=== PATIENT | female | born 1975 ===

== ENCOUNTER 2016-10-18 09:34 | Emergency (ER) | payer BC ==
[2016-10-18 09:35] VITALS: BMI 33.3
--- NOTE | 2016-10-18 10:02 | ED PDOC ---
HPI: Abdomen Time Seen by Provider: 10/18/16 09:53 Chief Complaint (Nursing): Abdominal Pain Chief Complaint (Provider): Abdominal pain History Per: Patient History/Exam Limitations: no limitations Onset/Duration Of Symptoms: Days (2weeks) Outside of [place] travel?: No Current Symptoms Are (Timing): Intermittent Episodes Severity: Moderate Location Of Pain/Discomfort: LLQ Quality Of Discomfort: "Pain" Associated Symptoms: denies: Fever, Nausea, Vomiting, Diarrhea, Constipation, Urinary Symptoms Additional History Per: Patient Additional Complaint(s): The pt is a 41yo female with PMHx of HTN, presents to the ED for evaluation fo left lower quadrant abdominal pain, intermittent for the past 2 week. Pt reports taking tylenol for the pain with no relief. She denies any nausea, vomiting, diarrhea, constipation, fever or symptoms. Currently offers no additional medical complaints. Past Medical History Reviewed: Historical Data, Nursing Documentation, Vital Signs Vital Signs: Last Vital Signs Temp 98.5 F 10/18/16 09:55 Pulse 72 10/18/16 12:49 Resp 16 10/18/16 12:49 BP 122/70 10/18/16 12:49 Pulse Ox 100 10/18/16 12:49 - Medical History PMH: Anemia, HTN, Hypothyroidism Denies: HIV - Surgical History Surgical History: (1x) - Family History Family History: States: Unknown Family Hx, Hypertension - Home Medications Home Medications: Ambulatory Orders Medication Instructions Recorded Losartan [Cozaar] 50 mg PO DAILY 02/20/15 Cyclobenzaprine [Flexeril] 5 mg PO Q8 PRN #15 tab 03/05/16 Ibuprofen [Motrin Tab] 600 mg PO Q8 PRN #60 tab 03/05/16 Cyclobenzaprine [Cyclobenzaprine 10 mg PO TID #20 tab 07/28/16 HCl] Ibuprofen [Motrin] 600 mg PO Q6 #20 tab 07/28/16 Nitrofurantoin Macrocrystals 100 mg PO BID #13 cap 10/18/16 [Macrobid] Phenazopyridine [Pyridium] 200 mg PO TID PRN #6 tab 10/18/16 - Allergies Allergies/Adverse Reactions: Allergies Allergy/AdvReac Type Severity Reaction Status Date / Time No Known Allergies Allergy Verified 10/18/16 09:55 Review of Systems ROS Statement: Except As Marked, All Systems Reviewed And Found Negative Constitutional: Negative for: Fever Gastrointestinal: Positive for: Abdominal Pain. Negative for: Nausea, Vomiting , Diarrhea, Constipation Genitourinary Female: Positive for: Other (No SYMPTOMS) Physical Exam - Reviewed Nursing Documentation Reviewed: Yes Vital Signs Reviewed: Yes - Physical Exam Appears: Positive for: Well, Non-toxic, No Acute Distress Head Exam: Positive for: ATRAUMATIC, NORMAL INSPECTION, NORMOCEPHALIC Skin: Positive for: Normal Color Eye Exam: Positive for: Normal appearance Neck: Positive for: Normal Cardiovascular/Chest: Positive for: Regular Rate, Rhythm Respiratory: Positive for: Normal Breath Sounds. Negative for: Respiratory Distress Gastrointestinal/Abdominal: Positive for: Soft, Tenderness (Medial LLQ tenderness). Negative for: Guarding, Rebound Neurologic/Psych: Positive for: Alert, Oriented - Laboratory Results Result Diagrams: 10/18/16 11:07 10/18/16 11:07 - ECG O2 Sat by Pulse Oximetry: 99 (RA) Pulse Ox Interpretation: Normal - CT Scan/US Pelvic ultrasound Other Rad Studies (CT/US): Radiology Report Reviewed (Few small nabothian cysts. Study is otherwise unremarkable.) Medical Decision Making Medical Decision Making: Time: 1004 Impression: Abdominal pain w/o nausea, vomiting or diarrhea Plan: * CMP * CBC * Morphine 2 mg IV * US Pelvis/Transvaginal * Reassess Scribe Attestation: Documented by Jacquelin Ribeiro acting as a scribe for Mary Ann Vazquez MD. Provider Attestation: All medical record entries made by the Scribe were at my direction and personally dictated by me. I have reviewed the chart and agree that the record accurately reflects my personal performance of the history, physical exam, medical decision making, and the department course for this patient. I have also personally directed, reviewed, and agree with the discharge instructions and disposition. Disposition - Clinical Impression Clinical Impression: UTI (urinary tract infection) - Disposition Referrals: [facility] [Outside] Former[facility] [Outside] Disposition: Routine/Home Disposition Time: 12:41 Condition: STABLE Prescriptions: Nitrofurantoin Macrocrystals [Macrobid] 100 mg PO BID #13 cap Phenazopyridine [Pyridium] 200 mg PO TID PRN #6 tab PRN Reason: Bladder Spasm Instructions: Urinary Tract Infection in Women (ED) Print Language: YORUBA
[2016-10-18 10:13] VITALS: TEMP 98.5
[2016-10-18 11:10] LABS: BASO % 0.3 % (0.0-2.0); EOS # 0.1 K/uL (0.0-0.7); HEMATOCRIT 35.7 % (34.0-47.0); LYMPH # 2.2 K/uL (1.0-4.3); LYMPH % 35.2 % (20.0-40.0); MEAN CELL VOLUME 82.9 fl (81.0-99.0); MEAN CORPUSCULAR HEMOGLOBIN 27.5 pg (27.0-31.0); MEAN CORPUSCULAR HGB CONC 33.1 g/dL (33.0-37.0); MEAN PLATELET VOLUME 9.4 fl (7.2-11.7); MONO # 0.3 K/uL (0.0-0.8); MONO % 4.8 % (0.0-10.0); NEUT # 3.6 K/uL (1.8-7.0); NEUT % 58.7 % (50.0-75.0); NRBC % 0.1 % (0.0-0.0); RED CELL DISTRIBUTION WIDTH 13.6 % (11.5-14.5); WHITE BLOOD COUNT 6.2 K/uL (4.8-10.8)
[2016-10-18 11:16] LABS: RBC URINE 4 /hpf (0-3); URINE BACTERIA FEW (<OCC); URINE BILIRUBIN NEGATIVE (NEGATIVE); URINE BLOOD NEGATIVE (NEGATIVE); URINE COLOR YELLOW (YELLOW); URINE GLUCOSE (UA) NEG (Normal); URINE KETONE NEGATIVE (NEGATIVE); URINE LEUKOCYTE ESTERASE MOD Leu/uL (Negative); URINE PROTEIN NEGATIVE (NEGATIVE); URINE UROBILINOGEN 0.2-1.0 mg/dL (0.2-1.0); WBC URINE 12 /hpf (0-5)
[2016-10-18 11:29] LABS: ALB/GLOB RATIO 1.4 (1.0-2.1); ALKALINE PHOSPHATASE 60 U/L (38-126); ALT/SGPT 94 U/L (9-52); AST/SGOT 52 U/L (14-36); BILIRUBIN,TOTAL 0.2 mg/dl (0.2-1.3); BLOOD UREA NITROGEN 12 mg/dl (7-17); CALCIUM 9.4 mg/dL (8.4-10.2); CARBON DIOXIDE 23 mmol/L (22-30); CHLORIDE 105 mmol/L (98-107); GFR AFRICAN-AMERICAN > 60; GLUCOSE,RANDOM 159 mg/dL (65-105); POTASSIUM 3.8 MMOL/L (3.6-5.0); SODIUM 141 mmol/l (132-148); TOTAL PROTEIN 7.9 G/DL (6.3-8.2)
[2016-10-18 12:12] LABS: PARTIAL THROMBOPLASTIN TIME 28.1 SECONDS (23.3-32.5)
[2016-10-18 12:59] VITALS: BP 122/70; PULSE 72; RESP 16
--- NOTE | 2016-10-18 13:33 | US ---
PROCEDURE: Pelvic ultrasound dated 10/18/2016. HISTORY: LLQ pain COMPARISON: No prior study available for comparison TECHNIQUE: Transabdominal/transvaginal sonographic evaluation of the pelvis performed. FINDINGS: The uterus is anteverted measuring approximately 9.7 x 5.0 x 5.0 cm. No obvious myometrial masses. Endometrial stripe measures 1 cm. There are small nabothian cyst present. No evidence of free fluid seen in the cul de sac. Right ovary measures 2.8 x 1.9 x 2.0 cm. Left ovary measures 3.2 x 2.9 x 2.4 cm. Both ovaries exhibit arterial flow. IMPRESSION: Few small nabothian cysts. Study is otherwise unremarkable.
[2016-10-22 14:12] VITALS: O2SAT 99
== END 2016-10-18 13:00 | disposition home or self-care (01) ==
LOC: H.ER 09:34
DX: N39.0 Urinary tract infection, site not specified (principal); R10.32 Left lower quadrant pain; E03.9 Hypothyroidism, unspecified; I10 Essential (primary) hypertension; D64.9 Anemia, unspecified; N88.8 Other specified noninflammatory disorders of cervix uteri
CPT/HCPCS: 76830; 76856; 80053; 81003; 81025; 85025; 85610; 85730; 96374; 99283; J2270

== ENCOUNTER 2016-10-28 20:03 | Emergency (ER) | payer BC ==
[2016-10-28 20:03] VITALS: BMI 33.3
[2016-10-28 21:28] LABS: BASO # 0.1 K/uL (0.0-0.2); BASO % 0.5 % (0.0-2.0); EOS # 0.1 K/uL (0.0-0.7); EOS % 0.8 % (0.0-4.0); HEMATOCRIT 39.1 % (34.0-47.0); MEAN CORPUSCULAR HEMOGLOBIN 27.5 pg (27.0-31.0); MEAN CORPUSCULAR HGB CONC 33.1 g/dL (33.0-37.0); MONO # 0.5 K/uL (0.0-0.8); MONO % 4.8 % (0.0-10.0); NEUT % 65.9 % (50.0-75.0); RED CELL DISTRIBUTION WIDTH 13.5 % (11.5-14.5); WHITE BLOOD COUNT 10.6 K/uL (4.8-10.8)
[2016-10-28 21:40] LABS: ALB/GLOB RATIO 1.3 (1.0-2.1); ALKALINE PHOSPHATASE 70 U/L (38-126); ALT/SGPT 107 U/L (9-52); AST/SGOT 71 U/L (14-36); BILIRUBIN,TOTAL 0.2 mg/dl (0.2-1.3); BLOOD UREA NITROGEN 11 mg/dl (7-17); CALCIUM 9.7 mg/dL (8.4-10.2); CARBON DIOXIDE 25 mmol/L (22-30); CHLORIDE 102 mmol/L (98-107); GFR AFRICAN-AMERICAN > 60; GLUCOSE,RANDOM 142 mg/dL (65-105); POTASSIUM 3.1 MMOL/L (3.6-5.0); SODIUM 141 mmol/l (132-148); TOTAL PROTEIN 8.7 G/DL (6.3-8.2)
[2016-10-28 21:44] LABS: RBC URINE 15 /hpf (0-3); URINE BACTERIA RARE (<OCC); URINE BILIRUBIN NEGATIVE (NEGATIVE); URINE BLOOD LARGE (NEGATIVE); URINE COLOR YELLOW (YELLOW); URINE GLUCOSE (UA) NEG (Normal); URINE KETONE NEGATIVE (NEGATIVE); URINE LEUKOCYTE ESTERASE NEG Leu/uL (Negative); URINE PROTEIN NEGATIVE (NEGATIVE); URINE UROBILINOGEN 0.2-1.0 mg/dL (0.2-1.0); WBC URINE 4 /hpf (0-5)
[2016-10-28] MEDS ORDERED: Potassium Chloride 20 mEq ER Tab PO STA (21:48)
[2016-10-28] MEDS ORDERED: Potassium Chloride 20 mEq ER Tab PO ONE (21:51)
[2016-10-28 22:23] LABS: PARTIAL THROMBOPLASTIN TIME 35.4 SECONDS (23.3-32.5)
--- NOTE | 2016-10-28 22:48 | ED PDOC ---
HPI: Chest Pain Time Seen by Provider: 10/28/16 20:15 Chief Complaint (Nursing): Chest Pain Chief Complaint (Provider): Chest pain History Per: Patient, Family History/Exam Limitations: no limitations Onset/Duration Of Symptoms: Days (2) Current Symptoms Are (Timing): Intermittent Episodes Quality: Sharp Associated Symptoms: denies: Nausea, Dyspnea, Diaphoresis, Syncope Exacerbating Factors: Turning Additional Complaint(s): Pt reports L sided lateral chest pain X 2 days, intermittent, no radiation, no SOB, no nausea. Denies fever, palpitations, leg pain, leg swelling. - Risk Factors PE Risk Factors: Neg: Previous DVT, Previous PE TAD Risk Factors: Pos: Hypertension Past Medical History Vital Signs: Last Vital Signs Temp 98 F 10/28/16 20:14 Pulse 86 10/28/16 20:14 Resp 18 10/28/16 20:14 BP 121/77 10/28/16 20:14 Pulse Ox 99 10/28/16 20:14 - Medical History PMH: Anemia, HTN, Hypothyroidism Denies: HIV - Surgical History Surgical History: (1x) - Family History Family History: States: Unknown Family Hx, Hypertension - Living Arrangements Living Arrangements: With Family - Social History Current smoker - smoking cessation education provided: No Alcohol: None - Home Medications Home Medications: Ambulatory Orders Medication Instructions Recorded Losartan [Cozaar] 50 mg PO DAILY 02/20/15 Cyclobenzaprine [Flexeril] 5 mg PO Q8 PRN #15 tab 03/05/16 Ibuprofen [Motrin Tab] 600 mg PO Q8 PRN #60 tab 03/05/16 Cyclobenzaprine [Cyclobenzaprine 10 mg PO TID #20 tab 07/28/16 HCl] Ibuprofen [Motrin] 600 mg PO Q6 #20 tab 07/28/16 Nitrofurantoin Macrocrystals 100 mg PO BID #13 cap 10/18/16 [Macrobid] Phenazopyridine [Pyridium] 200 mg PO TID PRN #6 tab 10/18/16 Ibuprofen [Motrin] 600 mg PO Q6H PRN #20 tab 10/28/16 - Allergies Allergies/Adverse Reactions: Allergies Allergy/AdvReac Type Severity Reaction Status Date / Time No Known Allergies Allergy Verified 10/18/16 09:55 ANDREW Risk Score for UA/NSTEMI - ANDREW Risk Score Age > 64: NO 3 or more CAD Risk Factors: NO Known CAD (Stenosis greater than 50%): NO Aspirin use in past 7 days: NO Severe Angina: NO EKG ST changes greater than 0.5mm: NO Positive Cardiac Marker: NO ANDREW Score: 0 Risk %: 5% Wells Criteria for PE - Wells Criteria for Pulmonary Embolism Clinical Signs and Symptoms of DVT: No P.E is #1 Diagnosis, or Equally Likely: No Heart Rate >100: No Immobilization at least 3 days;Surgery previous 4 weeks: No Previous, objectively diagnosed PE or DVT: No Hemoptysis: No Malignancy w/treatment within 6 months, or palliative: No Total Score: 0 Review of Systems Constitutional: Negative for: Fever, Chills Cardiovascular: Positive for: Chest Pain. Negative for: Palpitations Respiratory: Negative for: Cough, Shortness of Breath Gastrointestinal: Negative for: Nausea, Vomiting, Abdominal Pain, Diarrhea Genitourinary Female: Negative for: Dysuria, Hematuria Musculoskeletal: Negative for: Neck Pain, Back Pain Skin: Negative for: Rash, Lesions Neurological: Positive for: Headache. Negative for: Weakness, Numbness, Seizures, Altered Mental Status, Dizziness Physical Exam - Reviewed Nursing Documentation Reviewed: Yes Vital Signs Reviewed: Yes - Physical Exam Appears: Positive for: Well, No Acute Distress Head Exam: Positive for: ATRAUMATIC, NORMAL INSPECTION Skin: Positive for: Normal Color, Warm, Dry Eye Exam: Positive for: Normal appearance, EOMI, PERRL Cardiovascular/Chest: Positive for: Regular Rate, Rhythm. Negative for: Chest Non Tender (TTP L lateral chest wall) Respiratory: Positive for: Normal Breath Sounds. Negative for: Rales, Rhonchi, Wheezing Gastrointestinal/Abdominal: Positive for: Normal Exam Back: Positive for: Normal Inspection Extremity: Positive for: Normal ROM Neurologic/Psych: Positive for: Alert, specifications checker II-XII, Oriented. Negative for: Motor/Sensory Deficits - Laboratory Results Result Diagrams: 10/28/16 19:20 10/28/16 19:20 - ECG Interpretation Of ECG: NSR @ 83, nonspecific ST abnormality. O2 Sat by Pulse Oximetry: 99 Pulse Ox Interpretation: Normal - Radiology X-Ray: Interpreted by Tx X-Ray Interpretation: No Acute Disease Medical Decision Making Medical Decision Makin yo with chest wall pain. - labs - EKG - CXR Disposition - Clinical Impression Clinical Impression: Atypical chest pain - Disposition Referrals: [facility] [Outside] Disposition: Routine/Home Disposition Time: 22:46 Condition: STABLE Prescriptions: Ibuprofen [Motrin] 600 mg PO Q6H PRN #20 tab PRN Reason: Pain, Moderate (4-7) Instructions: Chest Pain (ED) Print Language: SETSWA[place]
[2016-10-28 23:43] VITALS: BP 126/73; PULSE 83; RESP 16; TEMP 97.8; O2SAT 98
--- NOTE | 2016-10-29 08:54 | CARD ---
APPROVED REPORT EKG Measurement Heart [id number] <Conclusion> Normal sinus rhythm Nonspecific ST abnormality Abnormal ECG
--- NOTE | 2016-10-29 10:19 | RAD ---
HISTORY: CP COMPARISON: Chest x-ray performed 03/05/16 TECHNIQUE: Chest PA and lateral FINDINGS: Examination limited by habitus. LUNGS: No focal consolidation. Please note that chest x-ray has limited sensitivity for the detection of pulmonary masses. PLEURA: No significant pleural effusion identified. No definite pneumothorax . CARDIOVASCULAR: Heart size appears within normal limits. OSSEOUS STRUCTURES: Degenerative changes. VISUALIZED UPPER ABDOMEN: Unremarkable. OTHER FINDINGS: None. IMPRESSION: No focal consolidation, significant pleural effusion, or definite pneumothorax identified.
== END 2016-10-28 23:44 | disposition home or self-care (01) ==
LOC: H.ER 20:03
DX: R07.89 Other chest pain (principal); I10 Essential (primary) hypertension

== ENCOUNTER 2017-10-22 21:45 | Emergency (ER) | payer BC ==
[2017-10-22 21:46] VITALS: BMI 33.3
[2017-10-22 22:50] VITALS: BP 127/85; PULSE 78; RESP 16; TEMP 98.3; O2SAT 97
--- NOTE | 2017-10-23 00:16 | ED PDOC ---
HPI: Allergic Reaction Time Seen by Provider: 10/22/17 23:14 Chief Complaint (Nursing): Allergic Reaction Chief Complaint (Provider): Rash Past Medical History Vital Signs: Last Vital Signs Temp 98.3 F 10/22/17 22:46 Pulse 78 10/22/17 22:46 Resp 16 10/22/17 22:46 BP 127/85 10/22/17 22:46 Pulse Ox 97 10/22/17 22:46 - Medical History PMH: Anemia, HTN, Hypothyroidism Denies: HIV - Surgical History Surgical History: (1x) - Family History Family History: States: Unknown Family Hx, Hypertension - Home Medications Home Medications: Ambulatory Orders Medication Instructions Recorded Losartan [Cozaar] 50 mg PO DAILY 02/20/15 Cyclobenzaprine [Flexeril] 5 mg PO Q8 PRN #15 tab 03/05/16 Ibuprofen [Motrin Tab] 600 mg PO Q8 PRN #60 tab 03/05/16 Cyclobenzaprine [Cyclobenzaprine 10 mg PO TID #20 tab 07/28/16 HCl] Ibuprofen [Motrin] 600 mg PO Q6 #20 tab 07/28/16 Nitrofurantoin Macrocrystals 100 mg PO BID #13 cap 10/18/16 [Macrobid] Phenazopyridine [Pyridium] 200 mg PO TID PRN #6 tab 10/18/16 Ibuprofen [Motrin] 600 mg PO Q6H PRN #20 tab 10/28/16 DiphenhydrAMINE [Benadryl] 50 mg PO Q6H PRN #20 cap 10/23/17 Famotidine [Pepcid] 20 mg PO DAILY #5 tab 10/23/17 predniSONE [predniSONE Tab] 20 mg PO DAILY #12 tab 10/23/17 - Allergies Allergies/Adverse Reactions: Allergies Allergy/AdvReac Type Severity Reaction Status Date / Time No Known Allergies Allergy Verified 10/18/16 09:55 - ECG O2 Sat by Pulse Oximetry: 97 Disposition - Clinical Impression Clinical Impression: Urticaria - Patient ED Disposition Is Patient to be Admitted: No Counseled Patient/Family Regarding: Diagnosis, Need For Followup, Rx Given - Disposition Disposition: Routine/Home Disposition Time: 00:15 Condition: GOOD Prescriptions: DiphenhydrAMINE [Benadryl] 50 mg PO Q6H PRN #20 cap PRN Reason: Itching / Pruritus Famotidine [Pepcid] 20 mg PO DAILY #5 tab predniSONE [predniSONE Tab] 20 mg PO DAILY #12 tab Instructions: Joseph (DC) Print Language: MALAY
== END 2017-10-23 00:20 | disposition home or self-care (01) ==
LOC: H.ER 21:45
DX: L50.0 Allergic urticaria (principal); E03.9 Hypothyroidism, unspecified; I10 Essential (primary) hypertension